=== PATIENT | male | born 2000 | race Caucasian/White ===

== ENCOUNTER 2025-04-30 08:32 | Outpatient (CLI) | payer OTHER, SELFPAY ==
--- NOTE | 2025-04-30 08:38 | US_ITS ---
WS: [id number] SCROTAL ULTRASOUND EXAMINATION CLINICAL INFORMATION: EPIDIDYMAL CYST COMPARISON: 2023 FINDINGS: TESTES Normal in size and echotexture. Small 2 mm LEFT testicular cyst unchanged Color Doppler: Normal color Doppler flow pattern. Right testes size: 5.6 cm x 3.0 cm x 2.4 cm. Left testes size: 4.7 cm x 2.6 cm x 2.4 cm. EPIDIDYMIDES Normal in size and echotexture, without focal lesion. Color Doppler: Normal color Doppler flow pattern. Right epididymis size: 1.1 cm x 0.7 cm x 0.9 cm. Left epididymis size: 1.6 cm x 0.7 cm x 1.5 cm. HYDROCELE None. VARICOCELE None. OTHER FINDINGS Small LEFT spermatocele US/US scrotum [id number] IMPRESSION: 1. Small LEFT spermatocele measuring 8 x 5 mm unchanged 2. Stable tiny 2 mm cyst in the lateral LEFT testicle 3. Testicles and epididymis are otherwise normal bilateral
== END 2025-04-30 08:33 | disposition home or self-care (01) ==
PROVIDERS: Visit Provider Nurse Practitioner Family
DX: N50.3 Cyst of epididymis (principal); N43.41 Spermatocele of epididymis, single; N44.2 Benign cyst of testis
CPT/HCPCS: 76870